=== PATIENT | male | born 2000 | race Caucasian/White ===

== ENCOUNTER → 2021-04-19 | Outpatient (CLI) | payer SELFPAY ==
--- NOTE | 2021-04-19 16:30 | Diagnostic Imaging Report ---
INDICATION: Pneumonia and cough. PA and lateral views were obtained. FINDINGS: Heart size is normal. There are right perihilar and right upper lobe pulmonary infiltrates. There is no pleural effusion or pneumothorax. Mediastinum is unremarkable. IMPRESSION: Right perihilar and right upper lobe pulmonary infiltrates suspect for pneumonia. Dictated by: Dictated on workstation # [id number]
[2021-04-19 16:48] LABS: BASOPHILS % (AUTO) 0 % (0-10); EOSINOPHILS % (AUTO) 1 % (0-10); HEMATOCRIT 50 % (40-54); HEMOGLOBIN 16.4 g/dL (13.3-17.7); LYMPHOCYTES # (AUTO) 1.6 10^3/uL (1.0-4.0); LYMPHOCYTES % (AUTO) 37 % (12-44); MEAN CORPUSCULAR HEMOGLOBIN 28 pg (25-34); MEAN CORPUSCULAR HGB CONC 33 g/dL (32-36); MEAN CORPUSCULAR VOLUME 85 fL (80-99); MEAN PLATELET VOLUME 9.2 fL (9.0-12.2); MONOCYTES # (AUTO) 0.4 10^3/uL (0.0-1.0); MONOCYTES % (AUTO) 10 % (0-12); NEUTROPHILS # (AUTO) 2.3 10^3/uL (1.8-7.8); NEUTROPHILS % (AUTO) 52 % (42-75); PLATELET COUNT 237 10^3/uL (130-400); WHITE BLOOD COUNT 4.5 10^3/uL (4.3-11.0)
[2021-04-19 17:02] LABS: ALBUMIN 4.3 GM/DL (3.2-4.5); POTASSIUM 4.1 MMOL/L (3.6-5.0)
[2021-04-19 17:04] LABS: CALCIUM 9.5 MG/DL (8.5-10.1)
[2021-04-19 17:05] LABS: TOTAL PROTEIN 7.5 GM/DL (6.4-8.2)
[2021-04-19 17:07] LABS: BILIRUBIN,TOTAL 0.7 MG/DL (0.1-1.0)
[2021-04-19 17:08] LABS: CREATININE SERUM 0.98 MG/DL (0.60-1.30)
[2021-04-19 18:06] LABS: ERYTHROCYTE SEDIMENTATION RATE 2 MM/HR (0-15)
== END ==
LOC: EDSEX 16:00 → RAD 16:00
PROVIDERS: ATTEND Nurse Practitioner Family
DX: U07.1 COVID-19 (principal); J12.82 Pneumonia due to coronavirus disease 2019; R91.8 Other nonspecific abnormal finding of lung field
CPT/HCPCS: 36415; 71046; 80053; 85025; 85379; 85652; 86738

== ENCOUNTER → 2021-04-26 | Outpatient (CLI) | payer BC ==
--- NOTE | 2021-04-26 17:02 | Diagnostic Imaging Report ---
INDICATION: Lower respiratory infection. PA and lateral chest. Heart size and pulmonary vascularity are normal. Lungs are clear. There are no effusions or pneumothoraces. IMPRESSION: Negative chest. Dictated by: Dictated on workstation # [id number]
== END ==
LOC: RAD 16:09
DX: U07.1 COVID-19 (principal)
CPT/HCPCS: 71046